=== PATIENT | male | born 1940 | race Caucasian/White ===

== ENCOUNTER 2025-04-20 18:09 | Emergency (ER) | payer MEDICARE, OTHER, SELFPAY ==
[2025-04-20 18:20] VITALS: BP 129/83
--- NOTE | 2025-04-20 22:22 | ED.GENMED ---
History of Present Illness
General
Chief Complaint: Skin Surface Trauma
Source: patient
Exam Limitations: none
Time Seen by Provider: 04/20/25 21:57
Nursing documentation reviewed up to this point in time: agreed with
History of Present Illness
History of Present Illness:
84-year-old male past medical history of A-fib currently on Eliquis presenting to the emergency department today with concerns of a skin tear to left forearm that he has had trouble with controlling the bleed over the past 24 hours since that
occurred. Claims he is up-to-date with vaccinations denies additional concerns or additional injuries.
Past History
Past History
ED Past Medical History: HTN and Hypercholesterolemia
Social History
Tobacco: Non-smoker
Living: with family
Review of Systems
Review of Systems
Allergies reviewed?: Yes
All Other Systems: ROS reviewed and negative except as documented in HPI and ROS
Phy Exam
Physical Exam
Physical Exam:
GENERAL: Alert , in no apparent distress
EYE: pupils equal and reactive
NECK: Supple, no significant adenopathy.
ENT: o/p clr, mmm.
CARDIAC: Regular rate and rhythm .
LUNGS: Clear breath sounds bilaterally, no acute respiratory distress, no wheezes/rales/rhonchi
ABDOMEN: Soft, without focal tenderness, no r/g, no cvat
NEUROLOGICAL: Alert and oriented, no focal neuro deficits
SKIN: Superficial skin tear to the left forearm roughly 2 x 1 cm in total size. Superficial with just oozing bleeding. Warm and dry, skin intact.
MUSCULOSKELETAL: No edema, well perfused.
PSYCH: Normal and appropriate interaction.
Course
Vital Signs
Initial and Last Documented VS:
Initial Vital Signs
Pulse Resp BP Pulse Ox
83 18 129/83 98
04/20/25 18:20 04/20/25 18:20 04/20/25 18:20 04/20/25 18:20
Last Documented Vital Signs
Pulse Resp BP Pulse Ox
83 18 129/83 98
04/20/25 18:20 04/20/25 18:20 04/20/25 18:20 04/20/25 18:20
Procedures
Laceration Closure
Left Distal Arm:
Status of Wound: clean
Size of Wound in cm: 2
Description of Wound Edges: other (Superficial skin avulsion)
Revision/Debridement: routine- no revision and irrigate-direct pressure
Wound exploration: explored to base- no FB and no tendon involvement
Type of Closure: Dermabond-skin glue
MDM/Problems Addressed
MDM/Problems Addressed:
84-year-old male presenting to the emergency department with concerns of bleeding from a superficial skin avulsion to the left forearm. Patient is on Eliquis. This was cleaned thoroughly and closed with Dermabond here to control bleeding otherwise
stable for discharge. Return precautions given.
*Pulse Oximetry
SaO2: 98
Oxygen Mode of Delivery: Room air
Patient hypoxic: no (98)
*Critical Care Note
Total Time (30-74mins, 75-104mins- exclusive of procedures): Not Applicable
ED Attending Note
-
Portions of this chart may have been created with voice recognition software.� Occasional wrong word or��sound alike� substitutions may have occurred due to the inherent limitations of voice recognition software.
Discharge Plan
Departure
Patient Disposition: Home (Routine Discharge)
Date of Disposition: 04/20/25
Time of Disposition: 22:24
Patient with high blood pressure during this ER visit?: No
Condition: Good
Covid-19: Not Applicable
Discharge Problem:
Avulsion of skin
Instructions: Laceration Repair With Glue (DC)
Prescriptions:
No Action
oxycodone-acetaminophen 5 MG/325 MG tablet
1 tab PO Q4HPRN PRN (Reason: pain) Qty: 7 0RF
Referrals:
Jonel Hamilton MD [Family Provider, Internal Medicine]
Activity Restrictions/Additional Instructions:
You came to the emergency department today with concerns of a skin avulsion. This was closed with Dermabond. Please allow this to come off on its own in the next 5 to 7 days. Return for any worsening, new or concerning symptoms.
Interventions
Interventions:
*Risk Screen - Suicide Last Done: 04/20/25 18:14
*General Assessment Last Done: 04/20/25 18:14
*Neglect/Abuse Screening Last Done: 04/20/25 21:58
*ED- Fall Risk Assessment Last Done: 04/20/25 18:14
*ED COVID-19 Vaccine History Last Done: 04/20/25 18:14
ED-Skin Assessment Last Done: 04/20/25 21:58
Discharge Date and Time
Print Language: NAMIBIAN
== END 2025-04-20 22:54 | disposition home or self-care (01) ==
LOC: EMR 18:09
PROVIDERS: EMERGENCY PHYSICIAN Emergency Medicine; FAMILY PHYSICIAN Internal Medicine
DX: S51.812A Laceration without foreign body of left forearm, initial encounter (principal); X58.XXXA Exposure to other specified factors, initial encounter; I48.91 Unspecified atrial fibrillation; I10 Essential (primary) hypertension; E78.00 Pure hypercholesterolemia, unspecified; Z79.01 Long term (current) use of anticoagulants
CPT/HCPCS: 99282; 12001

== ENCOUNTER 2025-04-27 14:15 | Emergency (ER) | payer MEDICARE, OTHER, SELFPAY ==
[2025-04-27 14:22] VITALS: BP 114/69
--- NOTE | 2025-04-27 16:07 | ED.SKININJ ---
HPI-Injury
General
Chief Complaint: Skin Problem
Source: patient
Exam Limitations: none
Time Seen by Provider: 04/27/25 15:15
Nursing documentation reviewed up to this point in time: agreed with
History of Present Illness-Injury
Is this injury a work related problem?: No
Is pt an associate of [facility]?: No
Initial Injury comments:
Patient to ED wtih complaint of ongoing oozing from left forearm wound. States he fell approx 1 week ago and sustained a skin avulsion injury to his left dorsal forearm. He was seen in ED and wound sealed with glue. States wound continues to
lightly ooze. Brought self to ED for eval.
Past History
Past History
ED Past Medical History: Arrthythmia (afib), HTN and Hypercholesterolemia
Social History
Tobacco: Non-smoker
Living: with family
Review of Systems
Review of Systems
Allergies reviewed?: Yes
All Other Systems: ROS reviewed and negative except as documented in HPI and ROS
Constitutional: Reports no symptoms
Musculoskeletal: Reports no symptoms
Skin: Reports other (blood oozing form left dorsal forearm skin avulsion)
Neurological: Reports no symptoms
Psychiatric: Reports no symptoms
Phy Exam
General Physical Exam
General Presentation: well appearing and no apparent distress
General age: appears stated age
General Skin: warm and dry
General Habitus: normal
General Mental: alert
Musculoskeletal Exam
Musculoskeletal Exam: full ROM and neuro vasc intact
Skin Exam
Skin Exam: normal color, warm/dry, no rash and other (Glue removed f rom left forearm skin avulsion wound. Cleansed with NSS and dried. Scant amt of bloody drainage. NO redness or swelling, no pus. Gelfoam applied to wound. COmvered with 4x4,
franklin and andriy. No further bleleding)
Psychiatric Exam
Psychiatric Exam: normal mood/affect
Course
Orders/Labs/Results
Orders:
Orders
04/27/25 16:07
Andriy Wrap Left-Treatment ONCE
Vital Signs
Initial and Last Documented VS:
Initial Vital Signs
Temp Pulse Resp BP Pulse Ox
97.4 F 75 18 114/69 98
04/27/25 14:22 04/27/25 14:22 04/27/25 14:22 04/27/25 14:22 04/27/25 14:22
Last Documented Vital Signs
Temp Pulse Resp BP Pulse Ox
97.4 F 75 18 114/69 98
04/27/25 14:22 04/27/25 14:22 04/27/25 14:22 04/27/25 14:22 04/27/25 14:22
*Pulse Oximetry
SaO2: 98
Oxygen Mode of Delivery: Room air
Patient hypoxic: no
*Critical Care Note
Total Time (30-74mins, 75-104mins- exclusive of procedures): Not Applicable
Update Note
Update Note:
Patient to ED with complaint of continue bloody drainage from left forearm skin avulsion injury. Glue removed fromwound. Wouond cleansed with NSS and dried, gelfoam dressing applied. Covered iwth 4x4, franklin, acewrap. No further bleeding. He is
discharged home and will followup with PCP, Given instructions on s/s to return to ED and he is agreeable to plan.
ED Attending Note
-
Portions of this chart may have been created with voice recognition software.� Occasional wrong word or��sound alike� substitutions may have occurred due to the inherent limitations of voice recognition software.
Discharge Plan
Departure
Prescriptions:
No Action
oxycodone-acetaminophen 5 MG/325 MG tablet
1 tab PO Q4HPRN PRN (Reason: pain) Qty: 7 0RF
Referrals:
UNKNOWN - PT DOES,NOT KNOW [Family Provider]
Interventions
Interventions:
*Risk Screen - Suicide Last Done: 04/27/25 15:13
*General Assessment Last Done: 04/27/25 15:13
*Neglect/Abuse Screening Last Done: 04/27/25 15:13
*ED COVID-19 Vaccine History Last Done: 04/27/25 15:13
ED-Skin Assessment Last Done: 04/27/25 15:12
Discharge Date and Time
Print Language: KYRGYZ
== END 2025-04-27 16:20 | disposition home or self-care (01) ==
LOC: EMR 14:15
PROVIDERS: EMERGENCY PHYSICIAN Emergency Medicine
DX: S51.802D Unspecified open wound of left forearm, subsequent encounter (principal); W19.XXXD Unspecified fall, subsequent encounter; I10 Essential (primary) hypertension; E78.00 Pure hypercholesterolemia, unspecified; I48.91 Unspecified atrial fibrillation
CPT/HCPCS: 99282

== ENCOUNTER 2025-05-23 04:22 | Emergency (ER) | payer MEDICARE, OTHER, SELFPAY ==
[2025-05-23 04:26] VITALS: BP 132/82
[2025-05-23 05:53] VITALS: BMI 35.0
--- NOTE | 2025-05-23 07:28 | ED.GENMED ---
History of Present Illness
General
Chief Complaint: Skin Surface Trauma
Source: patient
Exam Limitations: none
Time Seen by Provider: 05/23/25 06:14
Nursing documentation reviewed up to this point in time: agreed with
History of Present Illness
History of Present Illness:
84-year-old male history of A-fib on Petra, CAD was at his daughter's house visiting and had probably was sleepwalking sometime around 4 AM when he had a trip and fall forward hitting his face on a piece of furniture. He has a complex lip
laceration with ongoing oozing from his upper lip. There is no obvious dental injury per the patient, he says he woke up with impact. He is not sure if he has ever sleepwalk before. Patient's tetanus is up-to-date. He has no significant
neurologic changes like a headache, confusion, weakness, vomiting.
He has no other injury
Past History
Past History
ED Past Medical History: Arrthythmia (afib), HTN and Hypercholesterolemia
Social History
Tobacco: Non-smoker
Living: with family
Review of Systems
Review of Systems
Allergies reviewed?: Yes
All Other Systems: Not applicable
Phy Exam
Physical Exam
Physical Exam:
GENERAL: Alert , in no apparent distress
HEAD: NCAT
face: upper lip laceration
NECK: no midline tenderness, active ROM intact, no paraspinal muscle tenderness;
EYE: pupils equal and reactive, EOMs intact.
ENT: o/p clr, mmm. no hemotympanum
No dental injury observed
Approximately 2-1/2 cm through and through upper lip laceration, macerated tissue, stellate upper lip laceration on the outside, gaping irregular wound on the inside of the upper lip on the mucosal surface
Some oozing
CARDIAC: Regular rate and rhythm, irregular ar breath sounds bilaterally, no acute respiratory distress, no wheezes/rales/rhonchi
ABDOMEN: Soft, without focal tenderness, no r/g, no cvat
NEUROLOGICAL: Alert and oriented, no focal neuro deficits, CN intact, 5/5 strength, sensation intact
SKIN: Warm and dry, lip laceration
MUSCULOSKELETAL: No edema, well perfused.
PSYCH: Normal and appropriate interaction.
Course
Orders/Labs/Results
Orders:
Orders
05/23/25 06:39
CT Facial Bones W/o Iv Contras Urgent
Comment:
Reason For Exam: fall on Eliquis
CT Head W/o Iv Contrast Urgent
Comment:
Reason For Exam: fall on quis
Vital Signs
Initial and Last Documented VS:
Initial Vital Signs
Pulse Resp BP Pulse Ox
84 20 132/82 100
05/23/25 04:26 05/23/25 04:26 05/23/25 04:26 05/23/25 04:26
Last Documented Vital Signs
Pulse Resp BP Pulse Ox
65 16 131/76 99
05/23/25 08:24 05/23/25 08:24 05/23/25 08:24 05/23/25 08:24
Procedures
Laceration Closure
Upper Lip:
Status of Wound: clean
Description of Wound Edges: ragged, flap-well vascularized and macerated
Preparation: cleaned with saline
Anesthesia: 1% Lidocaine with epi
Revision/Debridement: minor revision and irrigate-direct pressure
Wound exploration: explored to base- no FB
Type of Closure: layered closure
Skin Closure Material: 6-0 nylon
Number of sutures: 10
Additional information:
3 gut sutures buccal mucosa
MDM/Problems Addressed
Differential Diagnosis Includes:
Lip laceration, head injury, facial fracture
MDM/Problems Addressed:
84-year-old male with a history of A-fib on qu and fall this morning while he was sleepwalking injuring his face on a nightstand. He has a complex stellate through and through upper lip laceration. There is no obvious dental injury. He has
some discomfort. Denies any change in mental status. On exam the patient is neurologically intact, stable vital signs. His lip laceration took a lengthy time to repair but was well-approximated, he had 3 absorbable sutures placed on the buccal
mucosa as well.
Will CT the patient's facial bones and head given his history of thinners and the location of the laceration however anticipate discharge
CTs neg
d/c home
tetaus UTD
*Pulse Oximetry
SaO2: 98
Oxygen Mode of Delivery: Room air
Patient hypoxic: no (100)
*Critical Care Note
Total Time (30-74mins, 75-104mins- exclusive of procedures): Not Applicable
ED Attending Note
-
Portions of this chart may have been created with voice recognition software.� Occasional wrong word or��sound alike� substitutions may have occurred due to the inherent limitations of voice recognition software.
Discharge Plan
Departure
Patient Disposition: Home (Routine Discharge)
Date of Disposition: 05/23/25
Time of Disposition: 07:55
Patient with high blood pressure during this ER visit?: No
Condition: Fair
Covid-19: Not Applicable
Discharge Problem:
complex lip laceration, Injury of mouth
Instructions: Laceration Repair With Stitches (DC)
Prescriptions:
No Action
oxycodone-acetaminophen 5 MG/325 MG tablet
1 tab PO Q4HPRN PRN (Reason: pain) Qty: 7 0RF
Referrals:
Ron Lugo MD [Family Provider, Internal Medicine] - Follow up in 5-7 days
Activity Restrictions/Additional Instructions:
CAT SCANS WERE NEGATIVE FOR FRACTURE/TRAUMA
Keep the sutures clean and dry. Rinse your mouth out with warm salt water after you eat. Try to use a soft diet for the next day or 2. Tylenol for pain. Ice off-and-on. You could have some swelling to the tissue. You should have the stitches
removed in 5 to 7 days by your family doctor.
The inside sutures should be dissolved on their own
Interventions
Interventions:
*Risk Screen - Suicide Last Done: 05/23/25 04:26
*General Assessment Last Done: 05/23/25 05:53
*Neglect/Abuse Screening Last Done: 05/23/25 04:26
*ED- Fall Risk Assessment Last Done: 05/23/25 05:53
*ED COVID-19 Vaccine History Last Done: 05/23/25 05:53
*Nursing Disposition Last Done: 05/23/25 08:24
ED-Skin Assessment Last Done: 05/23/25 05:56
Discharge Date and Time
Discharge Date/Time: 05/23/25 08:25
Print Language: MACEDONIAN
[2025-05-23 08:24] VITALS: BP 131/76
== END 2025-05-23 08:25 | disposition home or self-care (01) ==
LOC: EMR 04:22
PROVIDERS: EMERGENCY PHYSICIAN Emergency Medicine; FAMILY PHYSICIAN Internal Medicine
DX: S01.511A Laceration without foreign body of lip, initial encounter (principal); S01.512A Laceration without foreign body of oral cavity, initial encounter; I25.10 Atherosclerotic heart disease of native coronary artery without angina pectoris; I48.91 Unspecified atrial fibrillation; I10 Essential (primary) hypertension; E78.00 Pure hypercholesterolemia, unspecified; Z79.01 Long term (current) use of anticoagulants; W01.190A Fall on same level from slipping, tripping and stumbling with subsequent striking against furniture, initial encounter; Y93.01 Activity, walking, marching and hiking; Y92.003 Bedroom of unspecified non-institutional (private) residence as the place of occurrence of the external cause
CPT/HCPCS: 99284; 13151; 70450; 70486

== ENCOUNTER 2025-05-30 11:36 | Emergency (ER) | payer MEDICARE, OTHER, SELFPAY ==
[2025-05-30 11:40] VITALS: BP 107/70
--- NOTE | 2025-05-30 12:15 | ED.GENMED ---
History of Present Illness
General
Chief Complaint: Wound Check/Suture Removal
Time Seen by Provider: 05/30/25 11:51
History of Present Illness
History of Present Illness:
84-year-old male presenting to the emergency department for suture removal. On 05/23 patient had a fall with head strike and arrival laceration to the lip, complicated. Patient had 3 absorbable sutures in 7 nonabsorbable sutures. Denies any issues
since the incident. Denies drainage or swelling. Denies fever. Denies any significant pain. He presents for suture removal, denies additional acute medical complaints
Past History
Past History
ED Past Medical History: Arrthythmia (afib), HTN and Hypercholesterolemia
Social History
Tobacco: Non-smoker
Living: with family
Phy Exam
Physical Exam
Physical Exam:
General: Well-appearing, no clinical signs of dehydration, nontoxic and in no acute distress
HEENT: protecting airway. Healed laceration to the top lip with crusting over sutures. No significant swelling.
Head: Subacute ecchymosis to right side of the face
Neck: appears supple
CV: Normal heart rate
Resp: No accessory muscle use, no increased work of breathing
Abd:no distension
Extremities: No deformities, no swelling
Neuro: alert, no focal neurologic deficit
: deferred
Rectal: deferred
Psych: Normal affect
Skin: Intact
Course
Vital Signs
Initial and Last Documented VS:
Initial Vital Signs
Temp Pulse Resp BP Pulse Ox
98.2 F 86 16 107/70 95
05/30/25 11:40 05/30/25 11:40 05/30/25 11:40 05/30/25 11:40 05/30/25 11:40
Last Documented Vital Signs
Temp Pulse Resp BP Pulse Ox
98.2 F 86 16 107/70 95
05/30/25 11:40 05/30/25 11:40 05/30/25 11:40 05/30/25 11:40 05/30/25 12:16
MDM/Problems Addressed
MDM/Problems Addressed:
84-year-old male presenting for suture removal to top of the lip after a fall 04/22. Vital signs normal
Patient's laceration appears to be appropriately healing. Sutures without incident. Stable for discharge with interval follow-up with primary care doctor. Return precautions discussed
*Pulse Oximetry
SaO2: 95
Patient hypoxic: no
*Critical Care Note
Total Time (30-74mins, 75-104mins- exclusive of procedures): Not Applicable
ED Attending Note
-
Portions of this chart may have been created with voice recognition software.� Occasional wrong word or��sound alike� substitutions may have occurred due to the inherent limitations of voice recognition software.
Discharge Plan
Departure
Prescriptions:
No Action
oxycodone-acetaminophen 5 MG/325 MG tablet
1 tab PO Q4HPRN PRN (Reason: pain) Qty: 7 0RF
Interventions
Interventions:
*Risk Screen - Suicide Last Done: 05/30/25 11:40
*General Assessment Last Done: 05/30/25 11:40
*Neglect/Abuse Screening Last Done: 05/30/25 11:40
Discharge Date and Time
Print Language: LAO
== END 2025-05-30 13:15 | disposition home or self-care (01) ==
LOC: EMR 11:36
PROVIDERS: EMERGENCY PHYSICIAN Student in an Organized Health Care Education/Training Program
DX: S01.511D Laceration without foreign body of lip, subsequent encounter (principal); W19.XXXD Unspecified fall, subsequent encounter; I10 Essential (primary) hypertension; E78.00 Pure hypercholesterolemia, unspecified; I48.91 Unspecified atrial fibrillation
CPT/HCPCS: 99281